=== PATIENT | male | born 1940 | race Caucasian/White ===

== ENCOUNTER → 2016-10-24 15:00 | Outpatient (CLI) | payer MEDICARE, BC | END | disposition home or self-care (01) | LOC: D.CT 14:30 | DX: R41.82 Altered mental status, unspecified (principal) ==

== ENCOUNTER 2016-11-03 23:59 | Emergency (ER) | payer MEDICARE, BC | END 2016-11-04 01:20 | disposition home or self-care (01) | LOC: D.ER 23:59 | DX: R79.89 Other specified abnormal findings of blood chemistry (principal); I48.2 Chronic atrial fibrillation; N40.0 Benign prostatic hyperplasia without lower urinary tract symptoms; I25.10 Atherosclerotic heart disease of native coronary artery without angina pectoris; I12.9 Hypertensive chronic kidney disease with stage 1 through stage 4 chronic kidney disease, or unspecified chronic kidney disease; N18.9 Chronic kidney disease, unspecified ==